=== PATIENT | male | born 1950 | race Caucasian/White ===

== ENCOUNTER 2016-06-05 14:18 | Outpatient (CLI) | END 2016-06-05 14:19 | disposition home or self-care (01) ==

== ENCOUNTER 2016-06-11 13:32 | Outpatient (CLI) | payer MEDICAID | END 2016-06-11 13:33 | disposition home or self-care (01) | DX: E87.6 Hypokalemia (principal); E11.9 Type 2 diabetes mellitus without complications; M10.9 Gout, unspecified; I48.0 Paroxysmal atrial fibrillation ==

== ENCOUNTER 2016-06-26 13:30 | Outpatient (CLI) | payer MEDICAID | END 2016-06-26 13:31 | disposition home or self-care (01) | DX: I48.0 Paroxysmal atrial fibrillation (principal) ==

== ENCOUNTER 2016-07-18 08:00 | Outpatient (CLI) | payer MEDICAID | END 2016-07-18 23:59 | disposition home or self-care (01) | DX: E87.6 Hypokalemia (principal) ==

== ENCOUNTER 2016-10-25 09:03 | Outpatient (CLI) | payer MEDICARE ==
[2016-10-25 19:51] LABS: CALCIUM 9.3 mg/dL (8.5-10.3); CREATININE 0.9 mg/dL (0.6-1.2); POTASSIUM 3.6 mmol/L (3.5-5.0)
[2016-10-25 19:58] LABS: HEMOGLOBIN A1C 0.58 g/dL
== END 2016-10-25 23:59 ==
LOC: LAB.N 09:03
PROVIDERS: ATTEND Family Medicine
DX: E87.6 Hypokalemia (principal); E11.9 Type 2 diabetes mellitus without complications; I48.0 Paroxysmal atrial fibrillation
CPT/HCPCS: 36415; 80048; 83036; 85610

== ENCOUNTER 2016-12-09 08:52 | Outpatient (CLI) | payer MEDICARE | END 2016-12-09 08:53 | disposition home or self-care (01) | DX: I48.0 Paroxysmal atrial fibrillation (principal) ==

== ENCOUNTER 2017-06-18 08:00 | Outpatient (CLI) | payer MEDICARE ==
[2017-06-18 19:33] LABS: HB2 TOTAL 17.2 g/dL; HEMOGLOBIN A1C 0.55 g/dL; HEMOGLOBIN A1C % 5.1 % (4.6-6.2)
[2017-06-18 19:35] LABS: BASOPHILS # (AUTO) 0.1 10^3/uL (0.0-0.1); BASOPHILS % (AUTO) 1.1 %; EOSINOPHILS # (AUTO) 0.1 10^3/uL (0.0-0.7); EOSINOPHILS % (AUTO) 1.1 %; HGB - HEMOGLOBIN 15.6 g/dL (14.0-18.0); LYMPHOCYTES # (AUTO) 2.1 10^3/uL (1.5-3.5); LYMPHOCYTES % (AUTO) 23.4 %; MEAN CORPUSCULAR HEMOGLOBIN 30.4 pg (27.0-31.0); MEAN CORPUSCULAR HGB CONC 32.7 g/dL (32.0-36.0); MEAN CORPUSCULAR VOLUME 93.1 fL (80.0-94.0); MEAN PLATELET VOLUME 10.6 fL (7.4-11.4); MONOCYTES # (AUTO) 0.6 10^3/uL (0.0-1.0); MONOCYTES % (AUTO) 6.2 %; NEUTROPHILS # (AUTO) 6.1 10^3/uL (1.5-6.6); NEUTROPHILS % (AUTO) 68.2 %; PLT - PLATELET COUNT 174 10^3/uL (130-450); RED BLOOD COUNT 5.11 10^6/uL (4.70-6.10); RED CELL DISTRIBUTION WIDTH 12.7 % (12.0-15.0); WHITE BLOOD COUNT 8.9 x10^3/uL (4.8-10.8)
[2017-06-18 19:43] LABS: ALBUMIN 4.2 g/dL (3.2-5.5); ALBUMIN/GLOBULIN RATIO 1.4 (1.0-2.2); ALKALINE PHOSPHATASE 128 IU/L (42-121); ALT ALANINE AMINOTRANSFERASE 29 IU/L (10-60); AST ASPARTATE AMINOTRANSFERASE 29 IU/L (10-42); BILIRUBIN,TOTAL 0.5 mg/dL (0.2-1.0); BUN - BLOOD UREA NITROGEN 15 mg/dL (6-20); CALCIUM 8.5 mg/dL (8.5-10.3); CARBON DIOXIDE - CO2 28 mmol/L (21-32); CHLORIDE 105 mmol/L (101-111); CHOLESTEROL 140 mg/dL; CREATININE 0.8 mg/dL (0.6-1.2); GFR - MDRD 97 (>89); GLUCOSE 82 mg/dL (70-100); HDL CHOLESTEROL 35 mg/dL; LDL CHOLESTEROL,CALCULATED 80 mg/dL; LDL/HDL RATIO 2.3 (<3.6); SODIUM 139 mmol/L (135-145); TOTAL PROTEIN 7.3 g/dL (6.7-8.2); URIC ACID 6.1 mg/dL (2.6-7.2); VLDL CHOLESTEROL 25 mg/dL
== END 2017-06-18 08:01 ==
LOC: LAB.N 08:00
PROVIDERS: ATTEND Family Medicine
DX: E11.9 Type 2 diabetes mellitus without complications (principal); E78.5 Hyperlipidemia, unspecified; I10 Essential (primary) hypertension
CPT/HCPCS: 36415; 80053; 80061; 83036; 84443; 84550; 85025

== ENCOUNTER 2017-09-10 14:30 | Outpatient (CLI) | payer MEDICARE | END 2017-09-10 14:45 | disposition home or self-care (01) | LOC: RT.N 14:30 | PROVIDERS: ATTEND Family Medicine | DX: I48.0 Paroxysmal atrial fibrillation (principal) | CPT/HCPCS: 93005 ==

== ENCOUNTER 2017-10-29 10:04 | Outpatient (CLI) | payer MEDICARE ==
[2017-10-29 13:24] LABS: CALCIUM 8.9 mg/dL (8.5-10.3); CREATININE 0.8 mg/dL (0.6-1.2)
== END 2017-10-29 10:05 ==
LOC: LAB.N 10:04
PROVIDERS: ATTEND Family Medicine
DX: E87.6 Hypokalemia (principal); I10 Essential (primary) hypertension; I48.0 Paroxysmal atrial fibrillation; I49.3 Ventricular premature depolarization
CPT/HCPCS: 36415; 80048; 83735

== ENCOUNTER 2018-04-18 11:02 | Emergency (ER) | payer MEDICARE ==
--- NOTE | 2018-04-18 11:35 | ED Physician Documentation ---
PD HPI CHEST PAIN - Stated complaint Stated Complaint: RAPID HR - Chief complaint Chief Complaint: Cardiac - History obtained from History obtained from: Patient, Family - History of Present Illness Timing - onset: Other (67-year-old gentleman with history of atrial fibrillation status post ablation a couple of years ago presents with multiple complaints. For the last few days his diastolic has been running high he has had some intermittently high heart rates. They are relatively asymptomatic. It is unclear if he is actually in A. fib but his monitor does read irregular at times. He also complains of right wrist and hand pain with a history of gout for the last couple of days. There was some swelling but it is now gone. No fevers. He was on allopurinol but his uric acid serum normalized so he stopped it.) Review of Systems Ten Systems: 10 systems reviewed and negative Constitutional: denies: Fever, Chills Cardiac: denies: Chest pain / pressure, Palpitations Respiratory: denies: Dyspnea, Cough GI: denies: Abdominal Pain, Nausea, Vomiting PD PAST MEDICAL HISTORY - Past Medical History Past Medical History: Yes Cardiovascular: Hypertension, Atrial fibrillation Neuro: TIA Musculoskeletal: Gout - Past Surgical History Past Surgical History: Yes Cardiovascular: Other - Present Medications Home Medications: Ambulatory Orders Medication Instructions Recorded Confirmed Potassium Chloride 10 meq PO DAILY 01/10/14 03/07/16 Cholecalciferol (Vitamin D3) 2,000 units PO DAILY 03/07/16 03/07/16 [Vitamin D3] Garlic 2,000 mg PO 04/18/18 Magnesium 1,000 mg PO DAILY 04/18/18 04/18/18 amLODIPine [Norvasc] 2.5 mg PO BID 04/18/18 04/18/18 cloNIDine 0.3 MG PATCH 1 each TOP Q7D 04/18/18 04/18/18 [[id number]] - Allergies Allergies/Adverse Reactions: Allergies Allergy/AdvReac Type Severity Reaction Status Date / Time No Known Drug Allergies Allergy Verified 04/18/18 11:12 - Social History Does the pt smoke?: No Smoking Status: Never smoker Does the pt drink ETOH?: No Does the pt have substance abuse?: No - Immunizations Immunizations are current?: No PD ED PE NORMAL - Vitals Vital signs reviewed: Yes - General General: Alert and oriented X 3, No acute distress - Neck Neck: Supple, no meningeal sign, No bony TTP - Cardiac Cardiac: RRR, No murmur - Respiratory Respiratory: No respiratory distress, Clear bilaterally - Abdomen Abdomen: Non tender - Extremities Extremities: No edema, No calf tenderness / cord, Other (He has no overt redness or swelling of the right hand but has some tenderness near the second MCP and first CMC. No limited range of motion but he does have some pain with motion of the second finger and first finger and the wrist.) - Neuro Neuro: Alert and oriented X 3, Normal speech - Psych Psych: Normal mood, Normal affect Results - Vitals Vitals: Vital Signs - 24 hr 04/18/18 04/18/18 04/18/18 11:05 11:30 12:23 Temperature 37.3 C Heart Rate 82 72 62 Respiratory 18 15 16 Rate Blood Pressure 133/86 H 148/75 H 108/72 O2 Saturation 98 97 95 Oxygen O2 Source Room air - EKG (time done) 1112 Rate: Rate (enter#) (70) Rhythm: NSR [place]: Normal Intervals: Normal AL QRS: Normal Ischemia: Normal ST segments Computer interpretation: Agree with computer - Labs Labs: Laboratory Tests 04/18/18 04/18/18 04/18/18 11:18 11:18 11:18 WBC 10.1 RBC 5.14 Hgb 16.1 Hct 45.8 MCV 89.1 MCH 31.3 H MCHC 35.1 RDW 12.7 Plt Count 192 MPV 9.3 Neut # (Auto) 6.9 H Lymph # (Auto) 2.1 [place] # (Auto) 0.8 Eos # (Auto) 0.2 Baso # (Auto) 0.1 Absolute Nucleated RBC 0.00 Nucleated RBC % 0.0 Sodium 139 Potassium 3.9 Chloride 108 Carbon Dioxide 25 Anion Gap 6.0 BUN 17 Creatinine 1.0 Estimated GFR (MDRD) 75 L Glucose 98 Uric Acid 7.0 Calcium 8.8 Magnesium 2.3 Total Bilirubin 0.9 AST 26 ALT 23 Alkaline Phosphatase 103 Total Protein 7.5 Albumin 4.3 Globulin 3.2 Albumin/Globulin Ratio 1.3 Lipase 24 - Rads (name of study) R wrist 3v Radiology: EMP read contemporaneously (normal) PD MEDICAL DECISION MAKING - ED course ED course: 67-year-old gentleman with history of A. fib presents with some odd symptoms and a home pressure cuff reading irregular. He had no arrhythmias except for occasional PVCs on the monitor here. He declined pain medication other than ibuprofen which he has at home for the apparent gout in his right hand. X-rays there were negative. Departure - Departure Disposition: Home, Self Care Clinical Impression: Palpitations Gout of right hand Qualifiers: Gout etiology: unspecified cause Chronicity: acute Qualified Code(s): M10.9 - Gout, unspecified Condition: Good Record reviewed to determine appropriate education?: Yes Instructions: ANTI-INFLAMMATORY, General, ED Chest Pain NonCardiac Comments: As discussed you can take the ibuprofen you have at home for the right wrist and hand pain. Discussed risk of restarting allopurinol in 6-8 weeks with your physician. 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 Return for new or worsening symptoms.
[2018-04-18 11:39] LABS: BASOPHILS # (AUTO) 0.1 10^3/uL (0.0-0.1); EOSINOPHILS # (AUTO) 0.2 10^3/uL (0.0-0.7); EOSINOPHILS % (AUTO) 1.9 %; HGB - HEMOGLOBIN 16.1 g/dL (14.0-18.0); LYMPHOCYTES # (AUTO) 2.1 10^3/uL (1.5-3.5); LYMPHOCYTES % (AUTO) 20.7 %; MEAN CORPUSCULAR HEMOGLOBIN 31.3 pg (27.0-31.0); MEAN CORPUSCULAR HGB CONC 35.1 g/dL (32.0-36.0); MEAN CORPUSCULAR VOLUME 89.1 fL (80.0-94.0); MEAN PLATELET VOLUME 9.3 fL (7.4-11.4); MONOCYTES # (AUTO) 0.8 10^3/uL (0.0-1.0); MONOCYTES % (AUTO) 8.2 %; NEUTROPHILS # (AUTO) 6.9 10^3/uL (1.5-6.6); NEUTROPHILS % (AUTO) 68.2 %; PLT - PLATELET COUNT 192 10^3/uL (130-450); RED BLOOD COUNT 5.14 10^6/uL (4.70-6.10); RED CELL DISTRIBUTION WIDTH 12.7 % (12.0-15.0); WHITE BLOOD COUNT 10.1 x10^3/uL (4.8-10.8)
[2018-04-18 11:56] LABS: ALBUMIN 4.3 g/dL (3.2-5.5); ALBUMIN/GLOBULIN RATIO 1.3 (1.0-2.2); BILIRUBIN,TOTAL 0.9 mg/dL (0.2-1.0); CALCIUM 8.8 mg/dL (8.5-10.3); MAGNESIUM 2.3 mg/dL (1.7-2.8); TOTAL PROTEIN 7.5 g/dL (6.7-8.2)
--- NOTE | 2018-04-18 12:19 | XRAY Report ---
Reason: wrist pain Procedure Date: 04/18/2018 Accession Number: [id number] / [id number] Procedure: XR - Wrist 3 View RT CPT Code: FULL RESULT: EXAM: RIGHT WRIST RADIOGRAPHY EXAM DATE: 04/18/2018 12:04 PM. CLINICAL HISTORY: Wrist pain. COMPARISON: None. TECHNIQUE: 3 views. FINDINGS: Bones: Well corticated bony density adjacent to the distal dorsal aspect of the right radius. This is thought to represent sequela of prior injury. No acute fractures or bone lesions. Joints: Normal. No subluxations. Soft Tissues: Normal. No soft tissue swelling. IMPRESSION: No acute fracture, significant degenerative changes or erosive changes. RADIA
[2018-04-18 12:50] VITALS: BP 131/80
== END 2018-04-18 12:57 | disposition home or self-care (01) ==
LOC: ED 11:02
DX: R00.2 Palpitations (principal); M10.9 Gout, unspecified; I10 Essential (primary) hypertension; Z86.73 Personal history of transient ischemic attack (TIA), and cerebral infarction without residual deficits
CPT/HCPCS: 36415; 80053; 83690; 83735; 84550; 85025; 93005; 99284

== ENCOUNTER 2020-09-11 10:09 | Outpatient (CLI) | payer MEDICARE ==
[2020-09-11 11:17] VITALS: BP 130/77
--- NOTE | 2020-09-11 11:17 | SLEEP CARE CONSULTATION ---
Information from patient questionnaire entered by Selma Romero. I have reviewed and concur with the information entered by Selma Romero. This document represents the service I personally performed and the decisions made by me, Herbert Finley MD, [facility]. History of Present Illness Service Date and Time: 09/11/2020 1009 Reason for Visit: New patient, Previously diagnosed sleep apnea (Extremely severe - AHI - 102.7 in 2005), sleep apnea on CPAP therapy, Re-establish care (last seen 05/2016) Chief Complaint: reports: Other (CPAP broke 2 months ago) Date of Onset: 7 years Usual bedtime: 11:30pm Time it takes to fall asleep: 15 minutes Snores at night: Yes Observed to quit breathing while asleep: No Number of times waking at night: 3 Reasons for waking at night: reports: Bathroom, Other (stop breathing) Toss, Turn, or Twitch while sleeping: Yes Usually gets out of bed at: 8-8:30 am Feels refreshed in the morning: No Morning headache: No Sleepy or fatigued during the day: Yes Ever fallen asleep while driving: No Takes day naps: No Dreams during day naps: No Prior sleep studies: Yes Year and Where: 2005 - [facility] Type of Sleep Study: Polysomnography (Split-night) Additional HPI information: HPI: Mr. Ugarte was diagnosed to have extremely severe obstructive sleep apnea- hypopnea syndrome and returns today for follow up of CPAP therapy. The patient purchased the device from [employer] and was fitted with a [employer] Dreamwear nasal cushion. He has not gotten any supplies from [employer] for over a year. His CPAP actually broke 2 months ago. He thinks that the pressure of 8.8 cmH2O is comfortable (he turned it down from 10 cmH2O himself). When he could use the CPAP, he noticed improvement in his sleep quality, and that he wakes up feeling fresher in the morning and more awake/alert during the day. The average residual AHI is 6.5; and large leak, 7.5 L/min. - Parasomnia Symptoms Walks in sleep: No Ever acted out dreams in sleep: Yes Ever felt weak in the knees when startled or emotional: Yes Bothered by creepy, crawly, restless sensations in legs: No Problems with memory or concentration: Yes (sometimes) CPAP Compliance Data - Data Reviewed with Patient Average duration of nightly device use: 5 hr 35 min Compliance rate %: 43 (last 30)(42 for 180) Current pressure setting (cmH2O): 8.8 Humidity settin Average residual AHI: 6.5 Subjective Initial [place] Sleepiness Scale score: 13 (in 2006) Current [place] Sleepiness Scale score: 8 Past Medical History Past Medical History: reports: Hypertension, Other (RA) Social History The patient's occupation is a Retired. Patient is and lives in [place]. Have you smoked in the past 12 months: No Alcohol use: Yes Alcohol amount and frequency: 4 glasses annually Family History Family history of sleep disordered breathing: Yes Family Hx Sleep Apnea: Sibling: Sleep apnea - Treated Allergies and Home Medications Drug allergies reviewed: Yes Home medication list reviewed: Yes Review of Systems Weight loss over past 5 years: 60 Cardiovascular: reports: high blood pressure, irregular heart rate or pulse Respiratory: reports: sputum production Gastrointestinal: denies: heartburn, difficulty swallowing, nausea, vomitting, diarrhea, abdominal pain, other Urinary: reports: frequency Neurological: denies: headaches, seizure, head trauma, disorientation, speech dysfunction, gait or balance problems, fainting or unconsciousness, other Ear/Nose/Throat: reports: wisdom teeth removed, other (2 molars top left) Endocrine: reports: sluggishness Musculoskeletal: reports: joint swelling Immunologic: denies: sneezing, rash, itching, allergies to food or environment, other Physical Exam Vital signs obtained and entered by: Dr. Finley Blood Pressure: 130/77 Heart Rate: 74 O2 Saturation: 96 Height: 5 ft 9 in Weight: 195 lb Body Mass Index: 28.8 BMI Classification: Overweight Neck circumference: 16 Mood/affect: Normal HEENT: No craniofacial malformation Nostrils: patent to airflow Mouth and throat: normal Soft palate: normal Hard palate: normal Uvula: normal Uvula visualization: 50% Mallampati Class II Impression and Plan IMPRESSION: 1. Obstructive Sleep Apnea-Hypopnea Syndrome, extremely severe (was 102.7 in 2006), with the patient unable to use the CPAP because the device broke. His CPAP is also older than 5 years. I will order him a new one and set it on 6 10 cmH2O. PLAN: 1. Prescription made for an autoCPAP, heated humidifier, and related supplies. 2. Return for follow up after one month of using the CPAP. Visit Type: In Office Time Spent with Patient (minutes): 15 Provider Statement: I spent 100% of the Face to Face Visit with the patient with greater than 50% spent counseling the patient and coordination of care.
== END 2020-09-11 10:10 | disposition home or self-care (01) ==
LOC: SC 10:09
PROVIDERS: ATTEND Internal Medicine Pulmonary Disease
DX: G47.33 Obstructive sleep apnea (adult) (pediatric) (principal); E66.3 Overweight; Z68.28 Body mass index [BMI] 28.0-28.9, adult
CPT/HCPCS: 99202; G0463; 99212

== ENCOUNTER 2020-09-12 15:29 | Outpatient (CLI) | payer MEDICARE ==
--- NOTE | 2020-09-12 16:55 | XRAY Report ---
PROCEDURE: Wrist 3 View BILAT INDICATIONS: Polyarthritis, Gout TECHNIQUE: 3 views of each wrist were acquired. COMPARISON: Right wrist plain films dated 04/18/2018 FINDINGS: Bones: No fractures or dislocations. No suspicious bony lesions. Scaphoid view: Not requested Soft tissues: No suspicious soft tissue calcifications. IMPRESSION: No acute fracture. No osseous lesion. If symptoms and/or clinical suspicion for pathology continue, f urther assessment with repeat plain films, or advanced imaging (e.g., CT, MRI, or bone scan) is recom mended for further assessment. Reviewed by: Jesenia Hanson MD on 09/12/2020 4:54 PM PDT Approved by: Jesenia Hanson MD on 09/12/2020 4:54 PM PDT Station ID: [id number]
--- NOTE | 2020-09-12 16:56 | XRAY Report ---
PROCEDURE: Hand 3 View BILAT INDICATIONS: POLYARTHRITIS,GOUT TECHNIQUE: 3 views of each hand(s) acquired. COMPARISON: None FINDINGS: Bones: No fractures or dislocations. No suspicious bony lesions. Soft tissues: No suspicious soft tissue calcifications. IMPRESSION: No acute fracture. No osseous lesion. If symptoms and/or clinical suspicion for pathology continue, f urther assessment with repeat plain films, or advanced imaging (e.g., CT, MRI, or bone scan) is recom mended for further assessment. Reviewed by: Jesenia Hanson MD on 09/12/2020 4:55 PM PDT Approved by: Jesenia Hanson MD on 09/12/2020 4:55 PM PDT Station ID: [id number]
== END 2020-09-12 15:30 | disposition home or self-care (01) ==
LOC: DI 15:29
PROVIDERS: ATTEND Internal Medicine
DX: M10.9 Gout, unspecified (principal); M13.0 Polyarthritis, unspecified